=== PATIENT | female | born 1990 ===

== ENCOUNTER → 2017-07-07 | Outpatient (CLI) | payer OTHER | END | disposition home or self-care (01) | LOC: C.PATHSPEC 17:55 | PROVIDERS: ATTEND Podiatrist Foot & Ankle Surgery | DX: B07.9 Viral wart, unspecified (principal) ==

== ENCOUNTER 2023-04-21 01:14 | Inpatient (IN) ==
[2023-04-21] MEDS ORDERED: LIDOCAINE 1% LOCAL 20 ML VIAL INFIL PRN (08:53)
[2023-04-21] MEDS ORDERED: OXYTOCIN 30 UNITS/500 ML BAG IV PRN ×2 (08:53→14:58)
[2023-04-21] MEDS ORDERED: PENICILLIN G POTASSIUM 6 MU in DEXTROSE 5% 250 ML IV STA (09:03)
--- NOTE | 2023-04-21 09:18 | History & Physical Report ---
Date of Service April 21, 2023 Assessment & Plan Admission and Anticipated Discharge Date Admission Date: April 21, 2023 History of Present Illness Chief Complaint: induction of labor for history of macrosomia Primary Care Provider: RACHEL PCP 32 F P1001 at 39.3 weeks admitted for IOL for history of macrosomia with last . Had uneventful last oteher than macrosmia with operative vacuum delivery and no shoulder dystocia. No history of GDM with this or last . GBS is positive. Covid is negative Allergies Allergy/AdvReac Type Severity Reaction Status Date / Time No Known Allergies Allergy Verified 04/21/23 07:53 Home Medications Medication Instructions Recorded Confirmed Type cyanocobalamin (vitamin B-12) 1,000 mcg PO DAILY 04/21/23 04/21/23 History 1,000 mcg tablet (Vitamin B-12) prenat.vits,darien,[id number] 1 tab PO DAILY 04/21/23 04/21/23 History Patient History Medical History Anemia Head ache Macrosomia First Vitamin B 12 deficiency Surgical History [place] teeth removed Family History Other No known health problems Social History Smoking Status: Never smoker Hx Alcohol Use: No Hx Substance Use: No Preferred Language: Vietnamese Communication Ability: Effective Sock Knitter Required: No Beliefs That Will Affect Care: None marital status: marital status details: Jamel Olson Current Living Situation: Spouse and Family current occupational status: employed current occupation: [employer] Other Information That Helps Us Care for You: No Feels Safe at Home: Yes Safety Concerns: Feels Safe At This Time Assistive Devices: None OB History x1 with macrosomia JAR FILLER History neg Review of Systems All systems reviewed & are unremarkable except as noted in HPI & below Physical Exam Constitutional: WD/WN, vitals as above Eyes: PERRL, conjunctivae normal, anicteric sclerae Respiratory: normal respiratory effort, lungs clear to auscultation Cardiovascular: RRR, no murmur, no edema Gastrointestinal (Abdomen): Inspection/Auscultation: abdomen normal to inspect ion Musculoskeletal: Extremities: extremities normal to inspection Skin: no rashes, warm and dry Neurologic: patellar DTR's 2+ bilat, sensation intact Psychiatric: A+Ox3, euthymic affect Genitourinary: no vaginal lesions, no adnexal mass OB Exam Abdomen: + fundal height and + vertex Manual OB Exam: + cervical dilation fingertip, + cervical effacement 50% and + station high OB Exam Monitor Tracing: + external FHT monitor used, + external uterine monitor used, + category I and + normal FHT variability Will start Cytotec 50 mcg PO every 4 h for cervical ripening Results & Data Vital Signs (Past 12 Hours) Vital Signs Temp Pulse Resp BP 04/21/23 08:16 36.9 C 76 18 130/73 04/21/23 07:55 36.9 C 18 Laboratory Results 04/21/23 07:42 SARS-CoV-2, RNA, NAAT NEGATIVE Code Status & VTE Plan VTE Prophylaxis Plan VTE Prophylaxis will be ordered: No Monitoring External Monitor Cat 1
[2023-04-21] MEDS ORDERED: miSOPROStoL 50 MCG TAB PO STA (09:20)
[2023-04-21 09:21] LABS: Hemoglobin 10.8 g/dl (12.0-16.0); Mean Corpuscular Hemoglobin 29.5 pg (25.0-34.0); Mean Corpuscular Hgb Conc 32.7 g/dL (32.0-36.0); Mean Corpuscular Volume 90.2 fL (80.0-100.0); Mean Platelet Volume 10.1 fL (9.4-12.4); Platelet Count 194 K/uL (130-400); RDW Coefficient of Variation 15.4 % (11.5-14.5); Red Blood Count 3.66 M/uL (4.20-5.40)
--- NOTE | 2023-04-21 14:58 | Labor Progress Brief Note ---
Date of Service April 21, 2023 Assessment & Plan Admission and Anticipated Discharge Date Admission Date: April 21, 2023 Physical Exam Genitourinary: Manual OB Exam: + cervical dilation 3 cm, + cervical effacement 60% and + station -2 OB Exam Monitor Tracing: + external FHT monitor used, + external uterine monitor used, + category I and + normal FHT variability Will start Oxytocin to augment contractions Results & Data Vital Signs (Past 12 Hours) Vital Signs Temp Pulse Resp BP 04/21/23 11:03 20 04/21/23 11:03 36.6 C 20 04/21/23 11:08 70 131/60 04/21/23 08:16 36.9 C 76 18 130/73 04/21/23 07:55 36.9 C 18
[2023-04-21] MEDS: LACTATED RINGER'S 1,000 ML IV PRN ×3 (15:33→22:50)
[2023-04-21] MEDS ORDERED: ePHEDrine sulfate 50 MG/ML AMP ONE (15:36)
[2023-04-21] MEDS ORDERED: BUPIVACAINE 0.25% PF 30 ML VIAL ONE (15:37)
[2023-04-21] MEDS ORDERED: LIDOCAINE 2%/EPINEPHRINE 1:200,000 20 ML PF ONE (15:37)
[2023-04-21] MEDS ORDERED: fentaNYL citrate PF 100 MCG/2 ML VIAL ONE (15:37)
[2023-04-21] MEDS ORDERED: SODIUM CHLORIDE 0.9% PF INJ 10 ML VIAL ONE (15:37)
[2023-04-21] MEDS ORDERED: fentaNYL 2MCG/ML ROPIVACAINE 1.25MG/ML 100 ML BAG EPI ONE (15:38)
[2023-04-21] MEDS ORDERED: BUPIVACAINE 0.25% PF 30 ML VIAL EPI PRN (16:10)
[2023-04-21] MEDS ORDERED: LIDOCAINE 2%/EPINEPHRINE 1:200,000 20 ML PF EPI STA (16:10)
[2023-04-21] MEDS ORDERED: ONDANSETRON INJ 2 MG/ML 2 ML VIAL IV PRN (16:10)
[2023-04-21] MEDS ORDERED: BUPIVACAINE 0.25% PF 30 ML VIAL EPI STA (16:10)
[2023-04-21] MEDS ORDERED: ROPIVACAINE 0.5% PF 5 MG/ML 20 ML VIAL EPI PRN (16:10)
[2023-04-21] MEDS ORDERED: fentaNYL citrate PF 100 MCG/2 ML VIAL EPI PRN (16:10)
[2023-04-21] MEDS ORDERED: fentaNYL 2MCG/ML ROPIVACAINE 1.25MG/ML 100 ML BAG EPI PRN (16:10)
[2023-04-21] MEDS ORDERED: fentaNYL citrate PF 100 MCG/2 ML VIAL EPI STA (16:10)
[2023-04-21] MEDS ORDERED: NALOXONE HCL 1 MG in SODIUM CHLORIDE 0.9% 1000ML 1,000 ML IV PRN (16:10)
[2023-04-21] MEDS ORDERED: SODIUM CHLORIDE 0.9% PF INJ 10 ML VIAL EPI STA (16:10)
[2023-04-21] MEDS ORDERED: NALBUPHINE HCL INJ 10 MG/ML AMP IV PRN (16:10)
[2023-04-21] MEDS ORDERED: LIDOCAINE 2% MPF LOCAL 5 ML VIAL EPI PRN (16:10)
[2023-04-21] MEDS ORDERED: SODIUM CHLORIDE 0.9% PF INJ 10 ML VIAL EPI PRN (16:10)
[2023-04-21] MEDS ORDERED: ePHEDrine sulfate 50 MG/ML AMP IV PRN (16:10)
[2023-04-21] MEDS ORDERED: diphenhydrAMINE 50 MG/ML VIAL IV PRN (16:10)
[2023-04-21] MEDS ORDERED: NALOXONE HCL 0.4 MG/1 ML VIAL/CARP IV PRN (16:10)
--- NOTE | 2023-04-21 16:10 | Anesthesiology Consultation ---
Date of Service April 21, 2023 Assessment & Plan ASA ASA2 Proposed Anesthesia Anesthesia Type: Labor Epidural Risk / Benefits Reviewed With: PT / POA / Parent / Guardian, Accepts Plan and Informed Consent Obtained History Height/Weight Height: 5 ft 5 in Weight: 90.265 kg Allergies Allergy/AdvReac Type Severity Reaction Status Date / Time No Known Allergies Allergy Verified 04/21/23 07:53 Medications Home Medications Medication Instructions Recorded Confirmed Last Taken cyanocobalamin (vitamin B-12) 1,000 mcg PO DAILY 04/21/23 04/21/23 04/14/23 1,000 mcg tablet (Vitamin B-12) prenat.vits,darien,pvl-fvuf-zymos 1 tab PO DAILY 04/21/23 04/21/23 04/14/23 Active Medications Generic Name Dose Route Start Last Admin Trade Name Freq PRN Reason Stop Dose Admin Lactated Ringer's 1,000 mls @ 125 mls/hr 04/21/23 08:53 04/21/23 16:38 Lr IV 04/23/23 08:52 125 mls/hr .Q8H PRN Infusion L&D Protocol Protocol Oxytocin 30 units in 500 mls @ 1 mls/hr 04/21/23 14:58 04/21/23 15:33 Pitocin IV 04/23/23 14:57 0.06 units/hr .Q24H PRN 1 mls/hr Labor Induction/Augmentation Administration Protocol 0.06 UNITS/HR Past Medical History Medical History Anemia Head ache Macrosomia First Vitamin B 12 deficiency Exercise / Class Metabolic Activity II 4-5 Yardwork/Stairs/Walk up hill Past Family History Family History Other No known health problems Past Surgical History Surgical History [place] teeth removed Past Anesthesia History No Hx of Anesthesia Complications and No Family Hx of Anesthesia Complications History of PONV No Hx of PONV and No Hx of Motion Sickness Social History Smoking Status: Never smoker Hx Alcohol Use: No Hx Substance Use: No Review of Systems denies fever/cough/ colds/ chest pain/ SOB/ LIT denies LIT Physical Exam Vital Signs Last Vital Signs Temp 36.9 C 04/21/23 15:03 Pulse 81 04/21/23 16:41 Resp 18 04/21/23 15:33 BP 110/54 L 04/21/23 16:41 Pulse Ox 99 04/21/23 16:37 ENMT Mouth: no TMJ abnormality and no dentition abnormality Thyromental Distance: > or= 3.5 Finger Breadths Mallampati Class: II Neck neck extension not limited Respiratory normal respiratory effort; no respiratory distress Auscultation: lungs clear to auscultation bilaterally Cardiovascular Rate/Rhythm: regular rate and regular rhythm Neurologic moves all extremities Psychiatric Orientation: alert and oriented x 3 Testing Laboratory Results 04/21/23 09:06
--- NOTE | 2023-04-21 19:35 | Labor Progress Brief Note ---
Date of Service April 21, 2023 Assessment & Plan Admission and Anticipated Discharge Date Admission Date: April 21, 2023 Physical Exam Genitourinary: Manual OB Exam: + cervical dilation 3 cm, + cervical effacement 60%, + station -2 and + amniotic fluid clear OB Exam Monitor Tracing: + external FHT monitor used, + external uterine monitor used, + category I and + normal FHT variability AROM with Amni-hook clear fluid Results & Data Vital Signs (Past 12 Hours) Vital Signs Temp Pulse Resp BP Pulse Ox 04/21/23 19:32 72 122/71 96 04/21/23 19:28 96 H 93 04/21/23 19:27 86 96 04/21/23 19:22 77 98 04/21/23 19:21 78 92 04/21/23 19:19 78 126/72 04/21/23 19:17 78 95 04/21/23 19:12 83 97 04/21/23 19:07 80 98 04/21/23 19:02 77 116/63 96 04/21/23 18:57 79 96 04/21/23 18:52 82 96 04/21/23 18:47 68 95 04/21/23 18:48 70 114/56 L 04/21/23 18:42 68 94 04/21/23 18:40 67 93 04/21/23 18:37 67 94 04/21/23 18:34 72 16 94 04/21/23 18:32 71 95 04/21/23 18:33 74 18 119/59 L 04/21/23 18:27 70 95 04/21/23 18:26 77 94 04/21/23 18:22 76 96 04/21/23 18:19 93 04/21/23 18:19 85 04/21/23 18:19 74 114/61 04/21/23 18:17 69 96 04/21/23 18:12 71 94 04/21/23 18:13 71 94 04/21/23 18:07 77 96 04/21/23 18:02 20 04/21/23 18:02 75 20 111/61 95 04/21/23 17:57 79 96 04/21/23 17:52 89 96 04/21/23 17:48 76 18 124/64 04/21/23 17:47 81 97 04/21/23 17:42 91 H 98 04/21/23 17:37 68 96 04/21/23 17:35 70 94 04/21/23 17:32 69 108/65 98 04/21/23 17:27 69 94 04/21/23 17:25 68 94 04/21/23 17:22 67 95 04/21/23 17:20 70 94 04/21/23 17:17 70 97 04/21/23 17:18 69 20 107/55 L 04/21/23 17:12 73 100 04/21/23 17:07 80 95 04/21/23 17:02 67 98 04/21/23 16:59 74 113/61 04/21/23 16:57 81 97 04/21/23 16:54 70 104/58 L 04/21/23 16:52 77 97 04/21/23 16:49 75 20 106/57 L 04/21/23 16:47 80 97 04/21/23 16:42 75 99 04/21/23 16:43 76 20 108/55 L 04/21/23 16:41 81 20 110/54 L 04/21/23 16:39 77 109/55 L 04/21/23 16:37 81 20 113/57 L 99 04/21/23 16:35 88 113/64 04/21/23 16:34 74 20 121/56 L 04/21/23 16:32 81 99 04/21/23 16:31 85 20 111/60 04/21/23 16:27 69 100 04/21/23 16:28 67 20 140/81 04/21/23 16:25 64 121/59 L 04/21/23 16:22 71 100 04/21/23 16:20 68 135/87 04/21/23 16:18 92 H 94 04/21/23 16:17 81 99 04/21/23 16:12 70 98 04/21/23 16:07 75 98 04/21/23 16:02 69 99 04/21/23 15:53 71 98 04/21/23 15:48 73 99 04/21/23 15:43 71 98 04/21/23 15:38 72 100 04/21/23 15:33 70 18 129/72 04/21/23 15:03 36.9 C 70 18 129/68 06/14/23 11:03 20 04/21/23 11:03 36.6 C 20 04/21/23 11:08 70 131/60 04/21/23 08:16 36.9 C 76 18 130/73 04/21/23 07:55 36.9 C 18
[2023-04-21] MEDS: PENICILLIN G POTASSIUM 3 MU in DEXTROSE 5% 100 ML IV PRN ×2 (19:39→23:19)
[2023-04-22] MEDS ORDERED: fentaNYL citrate PF 100 MCG/2 ML VIAL ONE (00:02)
--- NOTE | 2023-04-22 00:12 | Anesthesia Procedure Note ---
Date of Service April 22, 2023 Anesthesia Epidural Re-Dose Vital Signs Temp Pulse Resp BP Pulse Ox 37.2 C 82 18 146/80 H 100 04/21/23 22:48 04/22/23 00:10 04/21/23 22:48 04/22/23 00:10 04/22/23 00:07 Notes Pain Intensity: 10 Dilatation (cm): 6.0 Effacement (%): 90 Called by nursing to evaluate epidural as the patient is having increased pain. The epidural was re-dosed with the following medications (all medications via epidural route) after negative aspiration of the epidural catheter for CSF/HEME. 2ml 2% lidocaine with epi, 3mL ropivacaine 0.5% and 100 mcg fetanyl via epidural After Epidural Re-Dose Mental Status: alert / awake / arousable Pain: improving with treatment Airway Patency, RR, SpO2: stable & adequate BP & HR: stable & adequate
--- NOTE | 2023-04-22 04:03 | Delivery Summary ---
Vaginal Delivery Summary Date of Service April 22, 2023 Vaginal Delivery Summary Delivery Note live female DAYDAY over intact perineum with tight nuchal cord x1 over neck reduced at delivery of head with delayed cord clamping and Apgars of 8/9 weight pending. Cord blood obtained followed by spontaneous delivery of intact placenta. First degree tear repaired with 3/0 Vicryl suture. EBL 300 ml. Final sponge, needle and instrument count are correct. Mom and baby stable.
[2023-04-22] MEDS ORDERED: DIPHTHERIA/TETANUS/PERTUSSIS Vaccine (Tdap, Age 7+yrs) 0.5mL SYR/VL IM ONE (04:04)
[2023-04-22] MEDS ORDERED: BENZOCAINE 20% AER SPR 82.5 GM CAN EXT PRN (04:04)
[2023-04-22] MEDS ORDERED: ACETAMINOPHEN 325 MG TAB PO PRN (04:04)
[2023-04-22] MEDS ORDERED: HYDROCORTISONE ACETATE 25 MG SUPP PR PRN (04:04)
[2023-04-22] MEDS ORDERED: OXYTOCIN 30 UNITS/500 ML BAG IV PRN (04:04)
[2023-04-22] MEDS: IBUPROFEN 600 MG TAB PO PRN ×2 (04:28→12:50)
--- NOTE | 2023-04-22 06:03 | Anesthesia Procedure Note ---
Date of Service April 22, 2023 Anesthesia Post Epidural Note Vital Signs Vital Signs: Temp Pulse Resp BP Pulse Ox 36.9 C 65 18 141/72 H 95 04/22/23 05:47 04/22/23 05:42 04/22/23 05:47 04/22/23 05:42 04/22/23 03:47 Pain Intensity Episiotomy/Laceration: Pain Intensity: 2 Notes Mental Status: alert / awake / arousable and participated in evaluation Nausea / Vomiting: adequately controlled Pain: adequately controlled Airway Patency, RR, SpO2: stable & adequate BP & HR: stable & adequate Hydration State: stable & adequate Neuraxial Anesthesia: sensory block is resolving Anesthetic Complications: no major complications apparent and Pt Satisfied with anesthetic care Epidural: Removed without complications and With tip intact
[2023-04-22] MEDS: DOCUSATE SODIUM 100 MG CAP PO SCH (08:18)
[2023-04-22] MEDS: FERROUS SULFATE 325 MG TAB PO SCH (08:18)
[2023-04-22] MEDS: PRENATAL VITAMIN 1 TAB PO SCH (08:18)
[2023-04-22] MEDS ORDERED: NON-FORMULARY MEDICATION (Prenat.Vits,Cal,Min-Iron-Folic Tablet) PO SCH (09:00)
[2023-04-22] MEDS: CYANOCOBALAMIN (B-12) 500 MCG TABLET PO SCH (09:28)
[2023-04-23] MEDS: DOCUSATE SODIUM 100 MG CAP PO SCH ×2 (05:34→08:55)
[2023-04-23] MEDS: IBUPROFEN 600 MG TAB PO PRN (06:23)
[2023-04-23 06:46] LABS: Hematocrit (blood only) 33.4 % (37.0-47.0); Hemoglobin 10.6 g/dl (12.0-16.0); Mean Corpuscular Hemoglobin 29.2 pg (25.0-34.0); Mean Corpuscular Hgb Conc 31.7 g/dL (32.0-36.0); Mean Platelet Volume 9.8 fL (9.4-12.4); Platelet Count 188 K/uL (130-400); RDW Coefficient of Variation 15.7 % (11.5-14.5); RDW Standard Deviation 52.7 fL (36.4-46.3); Red Blood Count 3.63 M/uL (4.20-5.40); White Blood Count 10.37 K/ul (4.8-10.8)
[2023-04-23] MEDS: CYANOCOBALAMIN (B-12) 500 MCG TABLET PO SCH (08:55)
[2023-04-23] MEDS: FERROUS SULFATE 325 MG TAB PO SCH (08:56)
[2023-04-23] MEDS: PRENATAL VITAMIN 1 TAB PO SCH (08:56)
--- NOTE | 2023-04-23 10:21 | Obstetrical Progress Note ---
Date of Service April 23, 2023 Subjective Ambulation: ambulating normally Voiding: no voiding problems Passing Gas:: Yes Diet Tolerance:: regular diet Lochia:: Small Feeding Type:: breast feeding Current Pain Level(1-10): 0 doing well. plans to go home if baby's echo normal Physical Exam Constitutional WD/WN, vitals as above Musculoskeletal Extremities: extremities normal to inspection neg Lulu's Skin no rashes, warm and dry Neurologic patellar DTR's 2+ bilat, sensation intact Psychiatric A+Ox3, euthymic affect Results & Data Vital Signs (Past 12 Hours) Vital Signs Temp Pulse Resp BP Pulse Ox O2 Del Method 04/23/23 09:00 36.8 C 75 18 143/77 H 99 Room Air 04/23/23 03:35 36.7 C 67 18 123/79 99 Room Air 04/22/23 23:00 36.9 C 74 18 117/74 98 Room Air Laboratory Results Laboratory Results - last 48 hr 04/23/23 06:23 WBC 10.37 RBC 3.63 L Hgb 10.6 L Hct 33.4 L MCV 92.0 MCH 29.2 MCHC 31.7 L RDW Std Deviation 52.7 H RDW Coeff of Ignacio 15.7 H Plt Count 188 MPV 9.8
[2023-04-23] MEDS ORDERED: bisacodyL 5 MG TABEC PO SCH (20:00)
[2023-04-24] MEDS ORDERED: bisacodyL 10 MG SUPP PR PRN
== END 2023-04-23 13:45 | disposition home or self-care (01) | DRG 807 ==
LOC: 4S1 07:30 → 4E2 04-22 05:59